=== PATIENT | female | born 1965 | race Two or more races ===

== ENCOUNTER 2016-08-02 13:20 | Emergency (ER) | payer SELFPAY ==
[2016-08-02 12:37] LABS: URINE SOURCE CLEAN CATCH
[2016-08-02 12:40] LABS: URINE APPEARANCE CLEAR; URINE BILIRUBIN NEG (NEG); URINE COLOR YELLOW; URINE GLUCOSE NEG (NORM); URINE KETONE NEG (NEG); URINE LEUKOCYTE ESTERASE NEG (NEG); URINE NITRATE NEG (NEG); URINE PROTEIN NEG (NEG); URINE SPECIFIC GRAVITY <=1.005 (1.003-1.035); URINE UROBILINOGEN 0.2 MG/DL (NORM)
[2016-08-02 12:42] LABS: MICRO INDICATED? NO; URINE BLOOD NEG (NEG)
[~2016-08-02 13:20] MED LIST: AMITRIPTYLINE H50 MG PO; CIPRO250 MG PO; DICLOFENAC PO; FISH OIL 1,0001 EAC1 PO; KCL PO; LIDOCAINE VISCOU1 ML PO; LORTAB 7.5-3251 EACH PO; LORTAB ELIXIR15 ML PO; NAPROXEN500 M1 PO; TEMAZEPAM30 MG PO; TOPAMAX25 MG PO; TOPIRAMATE100 MG PO
== END 2016-08-02 13:25 | disposition home or self-care (01) ==
LOC: SED 13:20
PROVIDERS: Emergency Medicine
DX: M54.5 Low back pain (principal)
CPT/HCPCS: 81003; 99283

== ENCOUNTER 2017-01-04 21:28 | Emergency (ER) | payer OTHER ==
[~2017-01-04] VITALS: Ht 157.5 cm; Wt 92.7 kg
--- NOTE | ~2017-01-04 | EKG ---
PATIENT: SUSANA LAGUNA UNIT #: [id number] Ventricular Rate: 102 BPM Atrial Rate: 102 BPM P-R Interval: 120 ms QRS Duration: 84 ms Q-T Interval: 332 ms QTC Calculation(Bezet): 432 ms P [place]: 10 degrees Calculated R [place]: 4 degrees Calculated T [place]: 15 degrees Diagnosis Line: Sinus tachycardia Diagnosis Line: Moderate voltage criteria for LVH, may be normal Diagnosis Line: variant Diagnosis Line: Borderline ECG Diagnosis Line: When compared with ECG of 08-AUG-2015 21:17, Diagnosis Line: Vent. rate has increased BY 39 BPM Diagnosis Line: Confirmed by MATEO MCDONOUGH MD ([id number]) on Diagnosis Line: 01/06/2017 1:50:42 PM INTERPRETING MD: CEASAR JOSHI
--- NOTE | ~2017-01-04 | CT16 ---
[facility] A Service [facility] RADIOLOGY TEXT RESULTS PATIENT: SUSANA LAGUNA LOCATION: SED : 67 UNIT #: [id number] AGE: [address]: Odell Lenz MD SEX: F ORDER DR: [id number] [place] [id number] E MR#: [id number] Acc #: [id number] NAME: SUSANA LAGUNA : 1965 SEX: F STUDY DATE/TIME: 01/04/2017 23:09 UNIT: SED ROOM: STUDY DESCRIPTION: CT Angio Chest for PE Attending Physician: Odell Lenz M.D. Ordering Physician: Odell Lenz M.D. Primary Care Physician: Amara Acharya A.P.R.N. MEDICAL IMAGING REPORT This report is preliminary unless electronic signature is present. EXAM CT angiogram chest with IV contrast. HISTORY Acute chest pain today. Elevated D-dimer. TECHNIQUE IV contrast and CT angiogram of the chest was performed with 3-D reconstructions. This CT exam was performed with one or more of the following radiation dose reduction techniques: automatic exposure control, adjustment of mA and/or kV according to patient size, and iterative reconstruction. FINDINGS No pulmonary infiltrates or effusions. Minimal atelectasis in the posterior lower lobes. No evidence of pulmonary embolus. Normal-caliber pulmonary arteries. Single mildly enlarged left upper mediastinal lymph node measures 1.1 cm in short axis dimension. Normal caliber thoracic aorta. Fatty infiltration of the liver. IMPRESSION 1. No acute findings in the chest. 2. No evidence of pulmonary embolus. 3. Single mildly enlarged left upper mediastinal node measures 1.1 cm. 4. Fatty infiltration of the liver. Dictated by... Regino Jorgensen M.D. [facility] A Service [facility] RADIOLOGY TEXT RESULTS PATIENT: SUSANA LAGUNA LOCATION: SED : 67 UNIT #: [id number] AGE: [address]: Odell Lenz MD SEX: F ORDER DR: THIS IS AN ELECTRONICALLY VERIFIED REPORT Regino Cory Jorgensen M.D. at 01/06/2017 4:44 AM KEYSHAWN/leny TD: 01/05/2017 22:51 JOB #: [id number] MEDICAL IMAGING REPORT Page 1 of 1
[2017-01-04] MEDS ORDERED: CARAFATE (21:40)
[2017-01-04] MEDS ORDERED: TOPAMAX50 MG (21:40)
[2017-01-04 22:07] LABS: BASOPHIL# 0.1 X10e3 (0-0.3); BASOPHIL% 0.8 % (0-2.5); EOSINOPHIL# 0.1 X10e3 (0-0.7); EOSINOPHIL% 1.5 % (0.0-7.0); HEMATOCRIT 37.6 % (35.0-45.0); HEMOGLOBIN 12.7 gm/dL (12.0-16.0); LYMPHOCYTE# 2.2 X10e3 (1.0-3.5); LYMPHOCYTE% 25.9 % (17.0-45.0); MEAN CELL VOLUME 87.3 FL (83-96); MEAN CORPUSCULAR HEMOGLOBIN 29.5 PG (28-34); MEAN CORPUSCULAR HGB CONC 33.8 g/dL (30-36); MEAN PLATELET VOLUME 8.2 FL (6.5-11.5); MONOCYTE# 0.6 X10e3 (0-1.0); MONOCYTE% 6.8 % (3.0-12.0); NEUTROPHIL# 5.5 X10e3 (1.5-7.1); PLATELET COUNT 254 X10e3 (140-420); RED BLOOD COUNT 4.31 X10e (3.90-5.30); RED CELL DISTRIBUTION WIDTH 12.6 % (11.0-15.5); WHITE BLOOD COUNT 8.4 X10e3 (4.0-10.5)
[2017-01-04 22:09] LABS: POC - CKMB 1.2 ng/mL (0.0-7.9); POC - MYOGLOBIN 66.4 ng/mL (0.0-169.0); POC - TROPONIN <0.05 ng/mL (<=0.05)
[2017-01-04 22:12] LABS: DIFF IND NO
[2017-01-04 22:18] LABS: PROTHROMBIN TIME (PATIENT) 11.2 SECONDS (9.5-12.4)
[2017-01-04 22:23] LABS: ALBUMIN SERUM 4.1 g/dL (3.5-5.0); BILIRUBIN, DIRECT 0.1 mg/dL (0.0-0.2); BILIRUBIN,INDIRECT 0.3 mg/dL (0.0-0.9); BILIRUBIN,TOTAL 0.4 mg/dL (0.2-2.0); BUN/CREATININE RATIO 14.28; CALCIUM SERUM 9.5 mg/dL (8.4-10.2); CREATININE SERUM 0.7 mg/dL (0.6-1.4); POTASSIUM 3.8 mmol/L (3.5-5.1); PROTEIN TOTAL SERUM 8.2 g/dL (6.0-8.3)
[2017-01-04 22:25] LABS: PARTIAL THROMBOPLASTIN TIME 24.9 SECONDS (25.6-38.1)
[2017-01-05 00:09] LABS: POC - CKMB <1.0 ng/mL (0.0-7.9)
[2017-01-05 00:10] LABS: POC - MYOGLOBIN 52.4 ng/mL (0.0-169.0); POC - TROPONIN <0.05 ng/mL (<=0.05)
[2017-01-06] MEDS ORDERED: IMITREX50 MG PO (17:37)
== END 2017-01-05 01:30 | disposition home or self-care (01) ==
LOC: SED 21:28
PROVIDERS: Emergency Medicine
DX: R07.9 Chest pain, unspecified (principal); F41.9 Anxiety disorder, unspecified; G43.909 Migraine, unspecified, not intractable, without status migrainosus
CPT/HCPCS: 36415; 71275; 80048; 80076; 82553; 83874; 84484; 85025; 85379; 85610; 85730; 93005; 99285; Q9967

== ENCOUNTER 2017-01-06 16:53 | Emergency (ER) | payer OTHER ==
[~2017-01-06] VITALS: Ht 157.5 cm; Wt 99.8 kg
[~2017-01-06 16:53] MED LIST changes: +CARAFATE; +TOPAMAX50 MG
[2017-01-06] MEDS ORDERED: IMITREX50 MG PO (17:37)
== END 2017-01-06 19:05 | disposition home or self-care (01) ==
LOC: SED 16:53
DX: G43.909 Migraine, unspecified, not intractable, without status migrainosus (principal); F32.9 Major depressive disorder, single episode, unspecified; Z98.51 Tubal ligation status
CPT/HCPCS: 96361; 96374; 96375; 99283; J0780; J1200; J1885